=== PATIENT | male | born 1990 | race Caucasian/White ===

== ENCOUNTER 2020-10-28 13:52 | Emergency (ER) | payer OTHER ==
[~2020-10-28] VITALS: Ht 175.3 cm; Wt 79.7 kg
[2020-10-28] MEDS ORDERED: ACETAMINOPHEN 500 MG TAB PO ONE (15:00)
[2020-10-28] MEDS ORDERED: KETOROLAC 30 MG/ML 1ML VIAL IV ONE (15:00)
[2020-10-28] MEDS ORDERED: methylPREDNISolone 125MG 2ML VIAL IV ONE (15:00)
[2020-10-28] MEDS ORDERED: AMOXICILLIN 500 MG CAP PO ONE (15:05)
[2020-10-28] MEDS ORDERED: PRED20TA PO (15:52)
[2020-10-28] MEDS ORDERED: AMOX500C PO (15:52)
[2020-10-28] MEDS ORDERED: CEPALOZ8 PO (15:53)
[2020-10-28] MEDS ORDERED: IBUP80TA PO (16:13)
[2020-10-28] MEDS ORDERED: NS 1,000 ML IV ONE (16:20)
[2020-10-28 17:14] VITALS: BP 126/70
== END 2020-10-28 17:23 | disposition home or self-care (01) ==
LOC: M ED 13:52
DX: J03.00 Acute streptococcal tonsillitis, unspecified (principal)
CPT/HCPCS: 87880; 96361; 96374; 96375; 99284; J1885; J2930

== ENCOUNTER 2020-10-29 11:53 | Emergency (ER) | payer OTHER ==
[~2020-10-29] VITALS: Ht 175.3 cm; Wt 79.4 kg
[~2020-10-29 11:53] MED LIST: AMOX500C PO; CEPALOZ8 PO; IBUP80TA PO; PRED20TA PO
[2020-10-29 13:28] VITALS: BP 128/65
== END 2020-10-29 13:30 | disposition home or self-care (01) ==
LOC: M ED 11:53
DX: J03.00 Acute streptococcal tonsillitis, unspecified (principal)